=== PATIENT | female | born 1955 ===

== ENCOUNTER 2022-05-31 07:50 | Day surgery (SDC) | payer OTHER ==
[~2022-05-31] VITALS: Ht 167.6 cm; Wt 81.6 kg
[2022-05-31] MEDS ORDERED: PERCOCET 5-3251 EACH PO (15:02)
== END 2022-05-31 22:30 | disposition home or self-care (01) ==
LOC: CIR.AMB 07:50
PROVIDERS: ATTEND Surgery
DX: K80.10 Calculus of gallbladder with chronic cholecystitis without obstruction (principal); Z20.822 Contact with and (suspected) exposure to COVID-19; I10 Essential (primary) hypertension; J45.909 Unspecified asthma, uncomplicated; Z87.891 Personal history of nicotine dependence; G43.909 Migraine, unspecified, not intractable, without status migrainosus